=== PATIENT | male | born 1970 | race Caucasian/White ===

== ENCOUNTER 2020-11-15 16:24 | Emergency (ER) | payer OTHER, SELFPAY ==
--- NOTE | 2020-11-15 16:41 | ED.DENTAL ---
HPI - Dental/Oral General Chief complaint: Dental/Oral Stated complaint: Toothache Time Seen by Provider: 11/15/20 16:41 Source: patient and RN notes reviewed History of Present Illness HPI Narrative: Patient is a 50-year-old male who presents the urgent care with his spouse with complaints of upper and lower right dental pain. Patient states is been ongoing for approximately 3 days. Denies of any [id number] medications for pain. Denies of any fever, nausea, vomiting. Patient states he did try to get in at the dental school. No other acute complaints. No acute distress noted. Patient aware of the plan of care. Some parts of this dictation were generated by voice recognition software and may contain typographical and/or grammatical inaccuracies. Related Data Home Medications Medication Instructions Recorded Confirmed atorvastatin 40 mg PO DAILY 11/15/20 11/15/20 gabapentin 300 mg PO BID 11/15/20 11/15/20 lisinopril 5 mg PO DAILY 11/15/20 11/15/20 Allergies Allergy/AdvReac Type Severity Reaction Status Date / Time vancomycin Allergy Intermediate Unknown Verified 11/15/20 16:59 Review of Systems Review of Systems: CONSTITUTIONAL: Denies fever, chills, or sweats. EYES: Denies visual changes, redness, or discharge. ENT: Denies rhinorrhea, congestion, sore throat, or otalgia. Reports of upper right and lower right dental pain CARDIOVASCULAR: Denies chest pain, palpitations, or edema. RESPIRATORY: Denies cough or dyspnea. GASTROINTESTINAL: Denies abdominal pain, nausea, vomiting, or diarrhea. GENITOURINARY: Denies dysuria or hematuria. SKIN: Denies rash or itching. MUSCULOSKELETAL: Denies back pain, joint pain, or myalgia. NEUROLOGIC: Denies headache, numbness, or weakness. All other systems reviewed are negative, except as documented in HPI. PMFSH Comments At the time of my signature, I reviewed and agree with the nursing past medical, surgical, social, and family history. There is no relevant family history pertinent to the patient complaint. Exam Narrative: GENERAL: This is a well-nourished, well-developed patient, in no apparent distress. HEAD: normocephalic, atraumatic. EYES: PERRL. Sclera clear/white. Vision is grossly intact. EARS: External ears normal, auditory canals clear and without drainage, TMs normal without perforation. Hearing grossly intact. NOSE: External nose normal with no obvious nasal discharge, nares without redness, no rhinorrhea. THROAT: Mucous membranes moist, posterior pharynx clear. NECK: Neck supple DENTAL: Poor dental health. Large carious lesions to the first and second upper right premolars. Lower right second molar abscess with mild to moderate erythema and edema CARDIOVASCULAR: Regular rate and rhythm without murmurs, gallops, or rubs. RESPIRATORY: Clear to auscultation. Breath sounds equal bilaterally. No wheezes, rales, or rhonchi. SKIN: warm, intact with no suspicious lesions or rash, good texture and turgor. NEURO: awake, alert, and oriented to person, place and time. There were no obvious focal neurologic abnormalities. EXTREMITIES: No clubbing, cyanosis, or edema. Course Vital Signs Vital signs: Vital Signs Temperature 98.6 F 11/15/20 17:00 Pulse Rate 47 L 11/15/20 17:00 Respiratory Rate 20 11/15/20 17:00 Blood Pressure 133/59 L 11/15/20 17:00 Pulse Oximetry 100 11/15/20 17:00 Temperature 98.6 F 11/15/20 17:00 Pulse Rate 47 L 11/15/20 17:00 Respiratory Rate 20 11/15/20 17:00 Blood Pressure 133/59 L 11/15/20 17:00 Pulse Oximetry 100 11/15/20 17:00 Reviewed MDM - Dental/Oral MDM Narrative Medical decision making narrative: Advised patient to complete oral antibiotic regimen as prescribed. Be sure to eat and drink with the medication. Use the Tylenol/ibuprofen as needed for pain and comfort. May use an ice pack to the jaw for comfort. Is important to follow-up with the dental school and let them know that you are currently on antibi
[2020-11-15 17:00] VITALS: BP 133/59; PULSE 47; RESP 20; TEMP 37; O2SAT 100
== END 2020-11-15 17:02 | disposition home or self-care (01) ==
PROVIDERS: Emergency Provider Nurse Practitioner Family; PCP Internal Medicine
DX: K04.7 Periapical abscess without sinus (principal); E78.00 Pure hypercholesterolemia, unspecified; I10 Essential (primary) hypertension
CPT/HCPCS: 99213; G0463

== ENCOUNTER 2020-12-14 12:40 | Emergency (ER) | payer OTHER, SELFPAY ==
[2020-12-14 12:46] VITALS: BP 151/54; PULSE 52; RESP 18; TEMP 36.6; O2SAT 99
--- NOTE | 2020-12-14 12:53 | ED.DENTAL ---
HPI - Dental/Oral General Chief complaint: Dental/Oral Stated complaint: Tooth Ache Time Seen by Provider: 12/14/20 12:50 Source: patient Mode of arrival: ambulatory Limitations: no limitations History of Present Illness HPI Narrative: Pierce Knapp is a 50 yo male with a PMH of hypertension, prediabetes, who comes with lower right dental pain that he was seen here for couple weeks ago. He has facial swelling on the lower right side and pain with movement of the jaw. He saw a dentist at the [facility] dental school a few days after his last visit and has an appointment on the to have his teeth pulled but in the meantime the infection has returned Related Data Home Medications Medication Instructions Recorded Confirmed atorvastatin 40 mg PO DAILY 11/15/20 11/15/20 gabapentin 300 mg PO BID 11/15/20 11/15/20 lisinopril 5 mg PO DAILY 11/15/20 11/15/20 Allergies Allergy/AdvReac Type Severity Reaction Status Date / Time vancomycin Allergy Intermediate Unknown Verified 11/15/20 16:59 Review of Systems Review of Systems: CONSTITUTIONAL: Denies fever, chills, sweats. EYES: Denies visual changes, redness, discharge. ENT: Denies rhinorrhea, congestion, sore throat, otalgia. CARDIOVASCULAR: Denies chest pain, palpitations, edema. Mouth: right lower dental pain RESPIRATORY: Denies dyspnea, wheezing, cough; GASTROINTESTINAL: Denies abdominal pain, nausea, vomiting, diarrhea. GENITOURINARY: Denies dysuria, hematuria, abnormal discharge SKIN: Denies rash or itching. NEUROLOGIC: Denies numbness, or focal weakness. PSYCHIATRIC: Denies anxiety or depression. PMFSH Past Medical History Medical History Hypertension Prediabetes Family History Family History Other Diabetes mellitus Heart disease Hypertension Social History Social History (Updated 12/14/20 @ 13:06 by Sravani Rivero CNP) Smoking status: Never smoker Alcohol intake: current Comments At time of signature, I agree with nursing past medical, surgical, social and family history. There is no relevant family history pertinent to the presenting complaint. BP - wide pulse pressure - needs follow u with pcp Exam Narrative: GENERAL: This is a well-nourished, well-developed patient, in mild distress. HEAD: normocephalic, atraumatic. EYES: PSclera clear/white. Vision is grossly intact. EARS: External ears normal; Hearing grossly intact. NOSE: External nose normal without nasal discharge, nares without redness, no rhinorrhea. Mouth: right lower molars, tender with gum swelling and swelling of the gingival tissue. THROAT: Mucous membranes moist, NECK: Neck supple, non-tender CARDIOVASCULAR: Regular rate and rhythm without murmurs, gallops, or rubs. RESPIRATORY: Clear to auscultation. Breath sounds equal bilaterally. No wheezes, rales, or rhonchi. GASTROINTESTINAL: Abdomen soft, SKIN: warm, intact with no suspicious lesions or rash, good texture and turgor. NEURO: awake, alert, and oriented to person, place and time. There were no obvious focal neurologic abnormalities. Steady gait EXTREMITIES: Normal range of motion. BACK: Nontender without deformity Course Course Emergency Course: Patient here with recurrent right molar pain and swelling Penicillin VK and Tylenol 3 he has an appointment on December 20 for extraction Vital Signs Vital signs: Vital Signs Temperature 97.9 F 12/14/20 12:46 Pulse Rate 52 L 12/14/20 12:46 Respiratory Rate 18 12/14/20 12:46 Blood Pressure 151/54 H 12/14/20 12:46 Pulse Oximetry 99 12/14/20 12:46 Temperature 97.9 F 12/14/20 12:46 Pulse Rate 52 L 12/14/20 12:46 Respiratory Rate 18 12/14/20 12:46 Blood Pressure 151/54 H 12/14/20 12:46 Pulse Oximetry 99 12/14/20 12:46 MDM - Dental/Oral Differential Diagnosis Differential diagnosis: Likely gingival abscess, dental caries, too
== END 2020-12-14 13:31 | disposition home or self-care (01) ==
PROVIDERS: Emergency Provider Nurse Practitioner; PCP Internal Medicine
DX: K04.7 Periapical abscess without sinus (principal); I10 Essential (primary) hypertension; R73.03 Prediabetes
CPT/HCPCS: 99213; G0463